=== PATIENT | female | born 2000 | race Two or more races ===

== ENCOUNTER 2022-12-29 09:07 | Outpatient (CLI) | payer OTHER | END 2022-12-29 09:13 | disposition home or self-care (01) | LOC: TOM 09:07 | PROVIDERS: ATTEND Otolaryngology Otology & Neurotology | DX: Q18.1 Preauricular sinus and cyst (principal) ==

== ENCOUNTER 2023-11-15 09:03 | Inpatient (IN) | payer OTHER ==
[~2023-11-15] VITALS: Ht 167.6 cm; Wt 47.6 kg
[2023-11-15] MEDS ORDERED: KETOROLAC TROMETHAMINE 60 MG VIAL IM STA (09:38)
[2023-11-15] MEDS ORDERED: CEFTRIAXONE SODIUM 2,000 MG VIAL ONE (09:42)
[2023-11-15] MEDS ORDERED: KETOROLAC TROMETHAMINE 60 MG VIAL IM ONE (09:42)
[2023-11-15] MEDS ORDERED: CEFTRIAXONE SODIUM 2,000 MG VIAL IV ONE (09:45)
[2023-11-15 10:22] LABS: HEMATOCRIT 39.8 % (36.0-45.00); HEMOGLOBIN 13.3 g/dL (12.0-15.00); MEAN CORPUSCULAR HEMOGLOBIN 28.9 pg (27.00-32.0); MEAN CORPUSCULAR HGB CONC 33.6 g/dl (32.0-36.0); PLATELET COUNT 301 K/uL (150-450); RED BLOOD COUNT 4.62 M/uL (4.00-6.00)
[2023-11-15 11:11] LABS: CREATININE SERUM 0.55 mg/dL (0.55-1.02); GFR 136.97; POTASSIUM 4.24 mEq/L (3.5-5.1)
[2023-11-15] MEDS ORDERED: VANCOMYCIN HCL 1,000 MG VIAL IV STA (11:41)
[2023-11-15] MEDS ORDERED: VANCOMYCIN HCL 1,000 MG VIAL IV SCH (12:13)
[2023-11-15] MEDS ORDERED: 0.9 % SODIUM CHLORIDE 1,000 ML IV SCH ×2 (12:15)
[2023-11-15] MEDS ORDERED: ACETAMINOPHEN 500 MG GEL..CAP PO PRN (12:15)
[2023-11-15] MEDS ORDERED: LIDOCAINE HCL 1%/EPINEPHRINE 20ML VIAL IJ ONE (12:59)
[2023-11-15 15:43] VITALS: BP 100/60; O2SAT 100
[2023-11-15 16:28] LABS: PH,URINE 7.5 (5.0-8.0); URINE APPEARANCE Cloudy; URINE BILIRRUBIN Negative (NEGATIVE); URINE BLOOD Negative; URINE COLOR Yellow; URINE GLUCOSE Negative (NEGATIVE); URINE KETONE 15 (NEGATIVE); URINE LEUKOCYTE Negative; URINE NITRATE Negative; URINE PROTEIN Negative (NEGATIVE); URINE UROBILINOGEN 0.2 E.U./dl
[2023-11-15 16:31] LABS: URINE BACTERIA 46.5 uL (0.0-1933); URINE EPITHELIAL CELLS 9.8 uL (0.0-38.8); URINE RBC 6.5 uL (0.0-20.8); URINE WBC 7.4 uL (0.0-23.2)
[2023-11-15] MEDS ORDERED: FAMOTIDINE/PF 20 MG/2 ML VIAL ONE (16:36)
[2023-11-15] MEDS ORDERED: FAMOTIDINE/PF 20 MG in 0.9 % SODIUM CHLORIDE 100 ML IV SCH (17:00)
[2023-11-15 18:07] VITALS: BP 116/65
[2023-11-16 01:40] VITALS: BP 94/49
[2023-11-16] MEDS ORDERED: FAMOTIDINE/PF 20 MG in 0.9 % SODIUM CHLORIDE 100 ML IV SCH (05:00)
[2023-11-16] MEDS ORDERED: VANCOMYCIN HCL 1,000 MG VIAL IV SCH (05:00)
[2023-11-16 09:09] VITALS: BP 105/54
[2023-11-16 17:25] VITALS: BP 119/68
[2023-11-16] MEDS ORDERED: FAMOTIDINE/PF 20 MG/2 ML VIAL ONE (19:27)
[2023-11-17 02:56] VITALS: BP 103/52
[2023-11-17 08:44] VITALS: BP 103/64; O2SAT 99
[2023-11-17 16:22] VITALS: BP 119/74
[2023-11-18 02:11] VITALS: BP 115/54
[2023-11-18 08:00] VITALS: BP 115/59
[2023-11-18] MEDS ORDERED: VANCOMYCIN HCL 5 MG/ML REDILUIDO IV SCH (17:00)
[2023-11-18 18:01] VITALS: BP 120/65
[2023-11-19 02:00] VITALS: BP 100/55
[2023-11-19 08:45] VITALS: BP 102/67
[2023-11-19 17:05] VITALS: BP 113/69
[2023-11-20 01:00] VITALS: BP 127/76
[2023-11-20 09:40] VITALS: BP 99/65
[2023-11-20 17:09] VITALS: BP 119/80
[2023-11-20] MEDS ORDERED: METROnidazole 500 MG TABLET PO SCH (18:40)
[2023-11-20] MEDS ORDERED: CEFTRIAXONE SODIUM 2,000 MG in 0.9 % SODIUM CHLORIDE 100 ML IV SCH (18:40)
[2023-11-21 02:14] VITALS: BP 95/60; O2SAT 100
[2023-11-21 08:26] VITALS: BP 106/68; O2SAT 100
== END 2023-11-21 14:47 | disposition home or self-care (01) | DRG 156 ==
LOC: ER 09:05 → MEDI 12:54
PROVIDERS: General Practice; ADMIT Internal Medicine; ATTEND Internal Medicine
PROC: BW28YZZ Computerized Tomography (CT Scan) of Head using Other Contrast (ICD-10-PCS; principal; 2023-11-15)
DX: H60.01 Abscess of right external ear (principal)